=== PATIENT | female | born 1950 | race Caucasian/White ===

== ENCOUNTER 2019-03-16 10:57 | Observation (INO) | payer OTHER ==
[2019-03-15 11:04] LABS: BASOPHILS % (AUTO) 0.6 % (0-1); EOSINOPHILS # (AUTO) 0.1 X10'3 (0-0.9); LYMPHOCYTES # (AUTO) 1.5 X10'3 (1.1-4.8); LYMPHOCYTES % (AUTO) 28.2 % (21-51); MEAN CORPUSCULAR HEMOGLOBIN 32.1 PG (27.0-31.0); MEAN CORPUSCULAR VOLUME 91.8 FL (78-98); MEAN PLATELET VOLUME 6.4 FL (7.4-10.4); MONOCYTES # (AUTO) 0.3 X10'3 (0-0.9); MONOCYTES % (AUTO) 6.4 % (2-12); NEUTROPHILS # (AUTO) 3.3 X10'3 (1.8-7.7); NEUTROPHILS % (AUTO) 62.8 % (42-75); PRE OP HEMATOCRIT 41.8 % (35.0-45.0); PRE OP HEMOGLOBIN 14.6 g/dL (12.0-16.0); PRE OP PLATELET COUNT 263 X10'3 (140-440); RED BLOOD COUNT 4.55 X10'6 (4.20-5.60); RED CELL DISTRIBUTION WIDTH 12.2 % (11.5-14.5)
[2019-03-15 11:12] LABS: PRE OP PROTIME 10.2 SECONDS (9.0-12.0)
[2019-03-15 11:16] LABS: ALBUMIN 4.5 G/DL (3.4-5.0); ALBUMIN/GLOBULIN RATIO 1.2 (1.1-1.5); ALKALINE PHOSPHATASE 90 IU/L (46-116); BLOOD UREA NITROGEN 7 MG/DL (7-18); BUN/CREATININE RATIO 8.1 (6.6-38.0); CALCIUM 9.3 MG/DL (8.5-10.1); CHLORIDE 104 MMOL/L (99-107); CREATININE 0.86 MG/DL (0.40-0.90); PRE OP ALT 23 U/L (30-65); PRE OP ANION GAP 10 (8-16); PRE OP AST 16 U/L (10-37); PRE OP BILIRUB, TOTAL 0.8 MG/DL (0.0-1.0); PRE OP GLUCOSE 104 MG/DL (70-104); PRE OP POTASSIUM 3.8 MMOL/L (3.4-5.1); PRE OP SODIUM 139 MMOL/L (135-145); TOTAL CARBON DIOXIDE 24.7 MMOL/L (24-32); TOTAL PROTEIN 8.2 G/DL (6.4-8.2); eGFR 66 ML/MIN
[2019-03-16] VITALS (19 sets, daily range): BP systolic 135–161; BP diastolic 63–92
[~2019-03-16] VITALS: Ht 167.6 cm; Wt 70.4 kg
[~2019-03-16 10:57] MED LIST: ACYC400T PO; DIPH25CA2 PO; ESOM20CA PO; FLUT16SP20; HYDR-3964 PO; IBUP-1985 PO; MONT10TA24 PO; cefazolin/dext.iso 2gm/50ml 50 ML IV ONE; famotidine 20mg tablet PO ONE; ringers solution, lacted 1,000 ML IV SCH; vancomycin inj 1,500 MG in normal saline 300ml IV soln IV ONE
[2019-03-16] MEDS ORDERED: diazepam 5mg tablet PO ONE (11:30)
[2019-03-16] MEDS ORDERED: BUPIVAcaine/PF 2.5 mg/ml (0.25%) 30ml vial ONE (12:51)
[2019-03-16] MEDS ORDERED: sevoflurane 250ml liquid IH ONE (14:19)
[2019-03-16] MEDS ORDERED: midazolam 2 mg/2 ml injection ONE (14:21)
[2019-03-16] MEDS ORDERED: fentaNYL /PF 50mcg/ml 5ml ampule ONE (14:21)
[2019-03-16] MEDS ORDERED: ringers solution, lacted 1,000 ML IV SCH (14:56)
[2019-03-16] MEDS ORDERED: ondansetron/PF 4mg/2ml inj IV PRN (15:00)
[2019-03-16] MEDS ORDERED: meperidine/PF 25mg/ml syringe IV PRN ×3 (15:00)
[2019-03-16] MEDS ORDERED: proCHLORperazine 10 MG/2 ml inj IV PRN (15:00)
[2019-03-16] MEDS ORDERED: morphine 4 MG/ML inj SYRINge IV PRN (15:00)
[2019-03-16] MEDS ORDERED: acetaminophen 1,000mg/100ml IV 100 ML IV ONE (16:01)
[2019-03-16] MEDS ORDERED: propofol inj 20 ML IV ONE (16:01)
--- NOTE | 2019-03-16 16:35 | NUR ---
Received from OR via BED, accompanied by Anesthesiologist DR YE and report given by Anesthesiologist. PT DROWSY, NO S/S OF DISTRESS/DISCOMFORT, RIGHT SHOULDER W/GAUZE DRSG COVERING INCISION CDI, ARM IN SLING. Addendum: 03/16/19 at 1650 by Suzy Cabrera RN Amended: Links added.
[2019-03-16] MEDS ORDERED: magnesium hydroxide 30ml (MOM) UD suspension PO PRN (16:40)
[2019-03-16] MEDS ORDERED: bisacodyl 10mg suppository rectal RC PRN (16:40)
[2019-03-16] MEDS ORDERED: diphenhydrAMINE 25mg capsule PO PRN ×2 (16:40)
[2019-03-16] MEDS ORDERED: acetaminophen 325mg tablet PO PRN (16:40)
[2019-03-16] MEDS ORDERED: HYDROcodone/acetaminophen 10/325mg tab PO PRN (16:40)
[2019-03-16] MEDS ORDERED: ketorolac trometh. 30mg/ml inj. IV ONE (16:45)
[2019-03-16] MEDS: morphine 4 MG/ML inj SYRINge IV PRN ×2 (17:23→17:34)
--- NOTE | 2019-03-16 17:32 | NUR ---
Patient in room . I have received report from Suzy BENTON and had the opportunity to ask questions and assume patient care.
--- NOTE | 2019-03-16 17:55 | NUR ---
Report called to receiving nurse. PT SLEEPING, AROUSES TO NAME, APPEARS VERY COMFORTABLE, STATES PAIN IS 8/10, BUT IS COMFORTABLE. Transferred via BED, 1 BAG OF PERSONAL Belongings SENT W/PT TO ROOM 4013A, RECEIVING RN AT BEDSIDE TO RECEIVE PT, BLL, CALL LIGHT GIVEN, SIDE RAILS UP X 2. Special Issues communicated to receiving nurse. YES. Addendum: 03/16/19 at 1807 by Suzy Cabrera RN Amended: Links added.
--- NOTE | 2019-03-16 18:15 | NUR ---
on O/N floor at 1800
--- NOTE | 2019-03-16 18:20 | NUR ---
Problems reprioritized. Patient report given, questions answered & plan of care reviewed with Mono BENTON.
--- NOTE | 2019-03-16 19:00 | NUR ---
Patient in room ORTHO 4013. I have received report from Malik BENTON and had the opportunity to ask questions and assume patient care.
[2019-03-16] MEDS ORDERED: vancomycin/NS 1 GM ADD-VANTAGE 250 ML IV SCH (20:00)
[2019-03-16] MEDS: potassium Cl 20mEq in NS 1,000 ML IV SCH (20:25)
[2019-03-16] MEDS ORDERED: sennosides 8.6mg tablet PO SCH (21:00)
[2019-03-16] MEDS ORDERED: montelukast 10mg tablet PO SCH (21:00)
[2019-03-16] MEDS: HYDROcodone/acetaminophen 10/325mg tab PO PRN (22:02)
[2019-03-16] MEDS: HYDROmorphone inj. 0.5 MG/0.5 ML DISP.SYRIN IV PRN (22:55)
[2019-03-17] MEDS: ceFAZolin 1GM/D5W- ADD-VANTAGE 50 ML IV SCH ×2 (00:38→07:14)
[2019-03-17] MEDS: ondansetron/PF 4mg/2ml inj IV PRN ×2 (01:16→11:42)
[2019-03-17 02:58] VITALS: BP 134/57
[2019-03-17] MEDS: HYDROcodone/acetaminophen 10/325mg tab PO PRN ×2 (03:48→10:29)
[2019-03-17] MEDS: potassium Cl 20mEq in NS 1,000 ML IV SCH (05:57)
[2019-03-17 06:00] VITALS: BP 117/66
--- NOTE | 2019-03-17 06:40 | NUR ---
Patient in room ORTHO 4013. I have received report from Mono BENTON and had the opportunity to ask questions and assume patient care.
[2019-03-17] MEDS: HYDROmorphone inj. 0.5 MG/0.5 ML DISP.SYRIN IV PRN (07:16)
[2019-03-17] MEDS ORDERED: pantoprazole 40mg Tablet.DR PO PRN (07:30)
[2019-03-17] MEDS ORDERED: ibuprofen 200mg tablet PO SCH (08:00)
[2019-03-17 10:00] VITALS: BP 123/72
[2019-03-17 14:00] VITALS: BP 158/76
--- NOTE | 2019-03-17 16:10 | NUR ---
Safe Discharge with friends. all personal items with patient.
== END 2019-03-17 17:16 | disposition home or self-care (01) ==
LOC: PAS 10:57 → ORTHO 4S 19:06
PROVIDERS: ADMIT Orthopaedic Surgery; ATTEND Orthopaedic Surgery
DX: M75.121 Complete rotator cuff tear or rupture of right shoulder, not specified as traumatic (principal); M19.011 Primary osteoarthritis, right shoulder; M75.21 Bicipital tendinitis, right shoulder
CPT/HCPCS: 23120; 23130; 36415; 80053; 82948; 85025; 85610; 85730; 93005; 96365; 96366; 96367; 96375; 96376; A6223; C1713; G0378; J0131; J0690; J0780; J1170; J1885; J2175; J2250; J2270; J2405; J2704; J3010; J3370; J3480; J3490; A4565; A4618; A6253; A6449; A7000; J7120